=== PATIENT | male | born 1935 | race Caucasian/White ===

== ENCOUNTER → 2018-05-08 | Outpatient (CLI) | payer OTHER ==
[~2018-05-08] MED LIST: NIACIN 500 MG1 EACH PO; PRINZIDE 20-121 EACH PO
== END | disposition home or self-care (01) ==
LOC: AMB 07:30
PROC: 0HBLXZZ Excision of Left Lower Leg Skin, External Approach (ICD-10-PCS; principal; 2018-05-08)
DX: D18.01 Hemangioma of skin and subcutaneous tissue (principal)
CPT/HCPCS: 88304